=== PATIENT | male | born 1960 | race African-American/Black ===

== ENCOUNTER 2019-07-10 18:39 | Emergency (ER) | payer OTHER ==
[~2019-07-10] VITALS: Ht 182.9 cm; Wt 68.0 kg
[2019-07-10] MEDS ORDERED: CATAPRES0.3 M1 (18:50)
[2019-07-10] MEDS ORDERED: [UNRECOGNIZED DRUG - OTHER] (18:51)
== END 2019-07-10 22:53 | disposition home or self-care (01) ==
LOC: ER 18:39
DX: M94.0 Chondrocostal junction syndrome [Tietze] (principal); R07.89 Other chest pain; E11.65 Type 2 diabetes mellitus with hyperglycemia